=== PATIENT | male | born 1955 | race Two or more races ===

== ENCOUNTER → 2024-03-27 11:02 | Outpatient (REF) | payer MEDICARE, OTHER, SELFPAY | LOC: HWRAD 11:02 | PROVIDERS: ATTENDING PHYSICIAN Student in an Organized Health Care Education/Training Program; FAMILY PHYSICIAN Nurse Practitioner Family | DX: M25.572 Pain in left ankle and joints of left foot (principal) | CPT/HCPCS: 73700 ==

== ENCOUNTER 2024-08-10 06:13 | Day surgery (SDC) | payer MEDICARE, OTHER, SELFPAY ==
[2024-08-10] VITALS (17 sets, daily range): BP systolic 97–152; BP diastolic 50–81; BMI 29.2; BMI 29.5
[2024-08-10 07:41] LABS: Glucose - Point of Care 115 mg/dl (70-99)
[2024-08-10] MEDS: CELEBREX 200 MG PO (07:47)
[2024-08-10] MEDS: TYLENOL 1000 MG PO (07:47)
[2024-08-10] MEDS: NORMOSOL-R/PLASMALYTE-A 1000 IV ×2 (07:47→18:04)
[2024-08-10] MEDS: DUONEB 3 ML INH (08:32)
--- NOTE | 2024-08-10 13:38 | W.PN.UPDATE ---
Update Note
Progress Note Update
s/p left ankle revision with ankle arthrodesis and hardware removal
-NWB LLE, PT/OT consult
-Ancef x 24 hours or until D/C if discharged prior to 24 hours
-Dressings C/D/I
-Pain control prn
-Will follow
[2024-08-10 13:58] LABS: Glucose - Point of Care 105 mg/dl (70-99)
--- NOTE | 2024-08-10 14:11 | HPS.HSE ---
Addendum entered and electronically signed by Al Abarca MD 08/10/24 18:26:
Patient has an insulin pump so we will stop sliding scale and allow patient to continue with his insulin pump.
Original Note:
Family Physician
-
Family Physician: NO INTERVIEW UNKNOWN
Chief Complaint
-
fracture
History of Present Illness
68-year-old male past medical history of COPD, former smoker, diabetes, hypertension, hyperlipidemia, cystic fibrosis gene mutation, GERD, pancreatic insufficiency status post Whipple, anxiety, diabetic neuropathy, presenting for left ankle revision
with ankle arthrodesis and hardware removal. He denies any symptoms at this time. He denies current smoking or alcohol use.
Medical History
Past Medical History
Past Medical History: Reports Other (COPD, former smoker, diabetes, hypertension, hyperlipidemia, cystic fibrosis gene mutation, GERD, pancreatic insufficiency status post Whipple, anxiety, diabetic neuropathy)
Past Surgical History: Reports None
Social History
Tobacco: Former Smoker
Alcohol: None
Drug: None
Family History
Family History: Not pertinent
Allergies / Home Medications
Allergies reflects when Allergies were last updated in [facility].
Home Medications with original date entered in [facility]
Allergy/Medication List:
Allergies
Allergy/AdvReac Type Severity Reaction Status Date / Time
No Known Allergies Allergy Verified 08/10/24 07:22
Home Medications
Humalog U-100 Insulin 0 units SC DIRECTED 06/19/24
PreserVision AREDS-2 1 pill PO BID 06/19/24
albuterol sulfate 2.5 mg/3 mL (0.083 %) solution for nebulization 2.5 mg inhalation Q6H PRN wheezing 06/19/24
albuterol sulfate 90 mcg/actuation aerosol inhaler (Proventil HFA) 2 puff inhalation PRN PRN SOB 06/19/24
budesonide 0.25 mg/2 mL suspension for nebulization 0.5 mg inhalation BID 06/19/24
empagliflozin 25 mg tablet (Jardiance) 25 mg PO DAILY 06/19/24
escitalopram oxalate 20 mg tablet 20 mg PO DAILY 06/19/24
formoterol fumarate 20 mcg/2 mL solution for nebulization (Perforomist) 20 mcg inhalation BID 06/19/24
gabapentin 300 mg capsule 300 mg PO TID 06/19/24
woaeng-gopkpyss-tfanwac 12,000-38,000-60,000 unit capsule,delayed rel (Creon) 2 cap PO TID 06/19/24
losartan 100 mg tablet 100 mg PO DAILY 06/19/24
multivitamin 1 tab PO DAILY 06/19/24
omeprazole 20 mg capsule,delayed release 20 mg PO DAILY 06/19/24
revefenacin 175 mcg/3 mL solution for nebulization (Yupelri) 175 mcg inhalation DAILY 06/19/24
rosuvastatin 20 mg tablet 20 mg PO QPM 06/19/24
aspirin 81 mg capsule 81 mg PO DAILY 08/10/24
Review of Systems
-
History Source: Patient
A 12 point ROS was completed and negative except as noted: Yes
Constitutional: Reports No Symptoms
EENT: Reports No Symptoms
Respiratory: Reports No Symptoms
Cardiac: Reports No Symptoms
Abdomen/GI: Reports No Symptoms
: Reports No Symptoms
Musculoskeletal: Reports No Symptoms
Skin: Reports No Symptoms
Neurological: Reports No Symptoms
Endocrine: Reports No Symptoms
Hematologic/Lymphatic: Reports No Symptoms
Psych: Reports No Symptoms
Physical Exam
Vital Signs
Vital Signs
Temp Pulse Resp BP Pulse Ox
97.0 F 86 21 108/63 94
08/10/24 13:33 08/10/24 14:00 08/10/24 14:00 08/10/24 14:00 08/10/24 14:00
Physical Exam
General: Well Developed, Well Nourished and No Apparent Distress
HEENT: NormoCephalic, Moist mucous membranes and Atraumatic
Respiratory: Clear
Cardiac: S1/S2 and Regular Rhythm; No Murmur or Rub
GI: Soft, Non Tender, Non Distended and Normal Bowel Sounds; No Organomegaly
Rectal: Deferred by Provider
Musculoskeletal: No Clubbing, No Cyanosis and No Edema
Skin: No Rash
Neuro: Nonfocal/grossly intact
Data Reviewed
-
Lab Data: Labs Reviewed by me
Old Records: Reviewed
Impression/Plan
-
IMPRESSION:
PLAN:
#Closed displaced pilon fracture left tibia with malunion status post ankle arthrodesis and hardware removal
-Observation given comorbidities
-Tylenol, oxycodone as needed for pain
-Cefazolin for 24 hours until discharge
-Dr. العراقي following
-Hold aspirin for now
Type 2 diabetes
-Continue Jardiance
Essential hypertension
-Continue losartan
Hyperlipidemia
-Continue statin
Cystic fibrosis gene mutation
GERD
-Continue omeprazole
Pancreatic insufficiency status post Whipple
-Continue Creon
Anxiety
-Continue Lexapro
Diabetic neuropathy
-Continue gabapentin
COPD
-Continue inhalers
Former smoker
Full code
DVT prophylaxis�heparin
Regular diet
--- NOTE | 2024-08-10 16:00 | PTCARENOTE ---
08/10- Patient transferred and oriented to unit without issue. AAOX3; currently on 2L O2 post-op, but patient states he is on RA throughout the day and only wears O2 while sleeping. L-ankle with fresh post-op wrap with soft cast and RODOLFO wrap CDI.
Patient denies any current requests.
[2024-08-10] MEDS: SUBLIMAZE 50 MCG IV (16:07)
[2024-08-10 17:17] LABS: Glucose - Point of Care 106 mg/dl (70-99)
[2024-08-10] MEDS: NEURONTIN 300 MG PO ×2 (18:03→21:08)
[2024-08-10] MEDS: CRESTOR 20 MG PO (18:03)
[2024-08-10] MEDS: ZENPEP DELAYED RELEASE CAPSULE 2 CAPSULE PO ×2 (18:04→21:08)
[2024-08-10] MEDS: ANCEF 5 IV (18:08)
[2024-08-10] MEDS: VENTOLIN NEBULES 2.5 MG INH (20:16)
[2024-08-10] MEDS: PULMICORT 0.5 MG INH (20:16)
[2024-08-10] MEDS: ROXICODONE 5 MG PO (21:00)
[2024-08-10] MEDS: TYLENOL 650 MG PO (21:00)
[2024-08-10 21:43] LABS: Glucose - Point of Care 274 mg/dl (70-99)
--- NOTE | 2024-08-10 22:03 | PTCARENOTE ---
Report given to Pearl CASTILLO
[2024-08-10] MEDS: PATIENT'S OWN INSULIN PUMP 9.1 UNITS SC (22:34)
[2024-08-11] MEDS: ANCEF 5 IV ×2 (00:02→08:09)
--- NOTE | 2024-08-11 07:09 | W.PN.UPDATE ---
Update Note
Progress Note Update
Patient resting comfortably in bed this morning. He reports he does have some pain in the ankle. He has been elevating and icing throughout the night
Directed exam of left lower extremity reveals a splint in place. Block still in effect. Cap refill <2secs
POD#1 left ankle revision with ankle arthrodesis and hardware removal under the direction of Dr. العراقي
--NWB LLE. Ambulate with assistive device as needed
--PT/OT consult
--Ancef x 24 hours or until D/C if discharged prior to 24 hours
--Maintain splint until postop appointment
--Pain control as needed. Elevate and ice as needed
--Stable for discharge to home
--Pain medications were sent to patient's pharmacy
--Follow up outpatient in 2 weeks
[2024-08-11 07:25] LABS: Glucose - Point of Care 168 mg/dl (70-99)
[2024-08-11 07:30] VITALS: BP 120/78
[2024-08-11] MEDS: ROXICODONE 5 MG PO ×3 (07:43→15:55)
[2024-08-11] MEDS: TYLENOL 650 MG PO ×3 (07:44→15:54)
[2024-08-11] MEDS: SPIRIVA RESPIMAT 2.5 MCG 2 PUFF INH (07:56)
[2024-08-11] MEDS: PULMICORT 0.5 MG INH (07:57)
[2024-08-11] MEDS: VENTOLIN NEBULES 2.5 MG INH ×3 (07:57→15:32)
[2024-08-11] MEDS: PATIENT'S OWN INSULIN PUMP 30 UNITS SC ×2 (08:08→13:53)
[2024-08-11] MEDS: ASPIR LOW (ENTERIC COATED) 81 MG PO (08:09)
[2024-08-11] MEDS: ZENPEP DELAYED RELEASE CAPSULE 2 CAPSULE PO (08:09)
[2024-08-11] MEDS: NEURONTIN 300 MG PO (08:09)
[2024-08-11] MEDS: THERAGRAN 1 TABLET PO (08:10)
[2024-08-11] MEDS: LEXAPRO 20 MG PO (08:10)
[2024-08-11 09:23] LABS: Glycohemoglobin (HgbA1c) 7.8 % (4.0-5.6)
[2024-08-11] MEDS: COZAAR 100 MG PO (10:47)
[2024-08-11] MEDS: FARXIGA 10 MG PO (10:48)
--- NOTE | 2024-08-11 11:09 | CM ---
nursing agency manager reviewed patient's chart and met with patient and patient states that he lives with his spouse in a one story home with 2 steps to enter, patient is independent with adl's and uses crutches with ambulation, this is patient's 4th
orthopedic surgery per patient, patient uses oxygen at night from [employer]. Patient drives.
[facility]acy: [facility]
PCP: [facility]
Plan; Home with spouse when stable, no needs.
[2024-08-11 11:34] LABS: Glucose - Point of Care 131 mg/dl (70-99)
--- NOTE | 2024-08-11 11:40 | W.DS.TRANS ---
DC Summary - [facility]
-
Discharge Instructions:
Sleep Apnea Risk High
Discharge Diagnosis/Procedures left ankle revision and arthrodesis
Diet As tolerated
Activity Do not bear weight L leg
Driving Restrictions No driving
Bathing Restrictions keep splint dry
Wound Care Keep splint in place until follow up appointment
. Keep splint dry
Instructions:
Stand-Alone Forms:
Changes to Home Medications: No
Discharge Medications:
DC Medications w/original date entered in [facility]
Humalog U-100 Insulin 0 units SC DIRECTED 06/19/24
PreserVision AREDS-2 1 pill PO BID 06/19/24
albuterol sulfate 2.5 mg/3 mL (0.083 %) solution for nebulization 2.5 mg inhalation Q6H PRN wheezing 06/19/24
albuterol sulfate 90 mcg/actuation aerosol inhaler (Proventil HFA) 2 puff inhalation PRN PRN SOB 06/19/24
budesonide 0.25 mg/2 mL suspension for nebulization 0.5 mg inhalation BID 06/19/24
empagliflozin 25 mg tablet (Jardiance) 25 mg PO DAILY 06/19/24
escitalopram oxalate 20 mg tablet 20 mg PO DAILY 06/19/24
formoterol fumarate 20 mcg/2 mL solution for nebulization (Perforomist) 20 mcg inhalation BID 06/19/24
gabapentin 300 mg capsule 300 mg PO TID 06/19/24
pbqpux-muxvifcq-swodqsi 12,000-38,000-60,000 unit capsule,delayed rel (Creon) 2 cap PO TID 06/19/24
losartan 100 mg tablet 100 mg PO DAILY 06/19/24
multivitamin 1 tab PO DAILY 06/19/24
omeprazole 20 mg capsule,delayed release 20 mg PO DAILY 06/19/24
revefenacin 175 mcg/3 mL solution for nebulization (Yupelri) 175 mcg inhalation DAILY 06/19/24
rosuvastatin 20 mg tablet 20 mg PO QPM 06/19/24
aspirin 81 mg capsule 81 mg PO DAILY 08/10/24
Home Medication Changes
Pending Results: No
[2024-08-11] MEDS: NORMOSOL-R/PLASMALYTE-A IV (13:53)
[2024-08-11 15:54] VITALS: BP 114/62
== END 2024-08-11 16:07 | disposition home or self-care (01) ==
LOC: SDS 06:13
PROVIDERS: Clinical Nurse Specialist Family Health; ATTENDING PHYSICIAN Internal Medicine; CONSULT PHYSICIAN Student in an Organized Health Care Education/Training Program
DX: S82.872K Displaced pilon fracture of left tibia, subsequent encounter for closed fracture with nonunion (principal); X58.XXXD Exposure to other specified factors, subsequent encounter; I10 Essential (primary) hypertension; E11.40 Type 2 diabetes mellitus with diabetic neuropathy, unspecified; K21.9 Gastro-esophageal reflux disease without esophagitis; T84.84XA Pain due to internal orthopedic prosthetic devices, implants and grafts, initial encounter; Z79.82 Long term (current) use of aspirin; Z79.84 Long term (current) use of oral hypoglycemic drugs
CPT/HCPCS: 27871; 20680; 73600; 76000; 82962; 83036; 94640